=== PATIENT | female | born 1980 | race Caucasian/White ===

== ENCOUNTER 2025-04-02 11:36 | Emergency (ER) | payer BC, SELFPAY ==
[2025-04-02 11:50] VITALS: BP 155/92; PULSE 70; RESP 19; TEMP 36.4; O2SAT 99; BMI 34.4
--- NOTE | 2025-04-02 12:05 | XR_ITS ---
EXAMINATION: Ankle, left 3 views. Technique: Ankle AP, oblique, lateral 3 views Date and time of exam: April 02, 2025, 12:50 p.m. INDICATIONS: Injury to the ankle today, ankle pain. FINDINGS: No ankle fracture or dislocation Prominent plantar and posterior bony calcaneal spurs IMPRESSION: No fracture or dislocation
[2025-04-02] MEDS: ACETAMINOPHEN 325 MG TABLET 1000 MG PO (12:28)
--- NOTE | 2025-04-02 12:32 | PD.EDANKLE ---
Lower Extremity Injury RME/HPI General Chief Complaint: Ankle/Foot Injury Stated Complaint: L ANKLE INJURY TODAY Time Seen by Provider: 04/02/25 12:05 Arrival date/time: 04/02/25 11:36 Limitations: no limitations RME / HPI RME / HPI Narrative: 44 year old female with history of IgA nephropathy, hypertension presents to the ED for evaluation of left ankle pain following injury today. Patient states she had walked outside barefoot and stepped on a sticker . States she had walked over to a cement ledge to place her foot on to remove the sticker . In process of doing so, she misstepped and heard a loud crack immediately followed by pain to the left ankle. States the pain the aggravated with movements and very minimally improved with immobilization. No other injuries or complaints reported. 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) REPRODUCTIVE: Positive Endometriosis (FOR THIS PROC) OTHER HISTORY: Positive Chicken Pox Family History FAMILY HISTORY: Positive Family Surgery (MOTHER,FATHER,BROTHER,SISTER) Surgical History SURGICAL: Negative Pacemaker Social History SMOKING STATUS: Never smoker ED Exam General Limitations: Present no limitations General appearance: Present alert and in no apparent distress Head Head exam: Present atraumatic, normocephalic and normal inspection Eye Eye exam: Present normal appearance and EOMI ENT ENT exam: Present normal exam, normal oropharynx and mucous membranes moist Neck Neck exam: Present normal inspection, full ROM and trachea midline Chest Chest inspection: Present normal inspection and symmetric chest wall rise Respiratory Respiratory exam: Present normal lung sounds bilaterally Cardiovascular Cardiovascular exam: Present regular rate, normal rhythm and normal heart sounds Extremities Exam Extremities exam: Present full ROM and other (The left ankle appeared normal, no edema, ROM not tested due to complaint of pain, no deformity, no ecchymosis. ) Neurological Exam Neurological exam: Present alert and oriented X3 Skin Skin exam: Present warm, dry, intact and normal color Course Quality Measures none Orders Category Date Time Status XR ankle comp LT min 3V Stat Exams 04/02/25 12:05 Completed Acetaminophen Tab [Tylenol Tab] Med 04/02/25 12:05 Discontinued 1,000 mg PO X1 ONE Vital Signs Vital signs: Vital Signs Temperature 97.5 F 04/02/25 11:50 Pulse Rate 70 04/02/25 11:50 Respiratory Rate 19 04/02/25 11:50 Blood Pressure 155/92 H 04/02/25 11:50 Pulse Oximetry (%) 99 04/02/25 11:50 Oxygen Delivery Method Room Air 04/02/25 11:50 Pulse ox is 99% on room air which is adequate. Extremity Injury, Lower MDM Narrative MDM Narrative:: Oly Olivas am scribing for and in the presence of Dr. Simpson. Left ankle XR is negative for any fracture or dislocation. In the ED, patient was given Tylenol for pain. Patient will be discharged home with GERMAN wrap and crutches. Patient data External records reviewed:: [facility] previous records Clinical information provided by:: patient Social determinants that could affect healthcare access:: none Patient has the following chronic illnesses:: IgA nephropathy, hypertension How is presenting disease/condition affected by chronic disease/condition?: uneffected by Evaluation data The following diagnostics were reviewed and interpreted by me:: lab results and radiology exam(s) Lab and/or radiology exams considered but not ordered:: None Interpretation Summary: Ordering Physician: Roni Simpson MD Date of Service: 04/02/25 Procedure(s): XR ankle comp LT min 3V Accession Number(s): [id number] cc: Roni Simpson MD; Prudencio Bermudez MD~ EXAMINATION: Ankle, left 3 views. Technique: Ankle AP, oblique, lateral 3 views Date and time of exam: April 02, 2025, 12:50 p.m. INDICATIONS: Injury to the ankle today, ankle pain. FINDINGS: No ankle fracture or dislocation Prominent plantar and posterior bony calcaneal spurs IMPRESSION: No fracture or dislocation Dictated By: Prudencio Bermudez MD Signed By: <Electronically signed by Prudencio Bermudez MD in [place]> 04/02/25 1324 Medications / Prescriptions Medications or Prescriptions considered but not ordered:: None Medication administrations:: Medication Administration History Discontinued Medications Acetaminophen (Acetaminophen 325 Mg Tablet) 1,000 mg PO X1 ONE Stop: 04/02/25 12:06 Last Admin: 04/02/25 12:28 Dose: 1,000 mg Documented By: PRASHANT See above Consultations Consultation(s) initiated? (list below): No Diagnosis Most likely diagnosis given after review of the tests above:: Left ankle pain Admission Indicated Admission indicated?: not indicated Admission Request Was there a request for admission?: No Disposition Plan Disposition Plan: Discharge Discharge Attestation Discharge Attestation: The patient and all family members were given an opportunity to ask questions and understood the discharge instructions. Discharge instructions specifically effects, indications for sooner follow up or return to the emergency department, and the expected course of current diagnosis. Patient condition: Stable Discharge Plan Plan Patient Disposition: HOME (Self Care) Prescriptions/Referrals Prescriptions/Med Rec: No Action lisinopril 10 MG tablet 10 mg PO QDAY Qty: 0 Referrals: Viraj Gusman MD [Primary Care Provider, Family Practice] - In 1 week Problem List Clinical Impression: Left ankle pain Patient/Caregiver Discharge Instructions Education Materials: ED GERMAN Wrap, ED Foot Contusion Additional Instructions: For pain, take both 1-2 Tylenol 500mg tablets every 6 hours AND 2 Advil Gel 200mg capsules every 6 hours. Follow-up with your primary care doctor in 3 to 5 days for recheck. You can return to the emergency department sooner if symptoms worsen or if you notice any new, concerning issues. Print Language: Croatian Stand Alone Forms: [employer] Info., Patient Portal Info Letter
== END 2025-04-02 18:27 | disposition home or self-care (01) ==
PROVIDERS: Emergency Provider Family Medicine; PCP Family Medicine
DX: S90.30XA Contusion of unspecified foot, initial encounter (principal); I10 Essential (primary) hypertension; S99.912A Unspecified injury of left ankle, initial encounter; Z95.0 Presence of cardiac pacemaker; X58.XXXA Exposure to other specified factors, initial encounter
CPT/HCPCS: 73610; 99283; A9270

== ENCOUNTER → 2025-04-30 | Outpatient (CLI) | payer BC, SELFPAY ==
--- NOTE | 2025-04-30 16:30 | XR_ITS ---
Examination: MRI left ankle without contrast Date and time of exam: May 17, 2025, 1710 hours INDICATIONS: Injury 1 month ago with sharp pain in the ankle and the calf and heel region Technique: Multiple MRI axial and sagittal sections left ankle. Sagittal T2-weighted images, TR 3500, TE 118 T1 weighted transverse sections, TR 688 T8.5, T2-weighted sagittal sections T1 weighted sagittal sections TR 621, TE 30 T2 axial sections, TR 4, 190, TE 84. Findings: Complete tear Achilles tendon, retracted 3 cm from its normal calcaneal insertion Mild plantar fasciitis No occult fracture or bone contusion Edema in the subcutaneous fatty tissue Anterior posterior inferior tibiofibular and talofibular ligaments intact Flexor and extensor tendons intact Negative for sinus Tarsi syndrome Dome of the talus intact IMPRESSION: Complete tear of the Achilles tendon
== END | disposition home or self-care (01) ==
PROVIDERS: PCP Family Medicine; Referring Provider Nurse Practitioner Family; Visit Provider Nurse Practitioner Family
DX: S86.012A Strain of left Achilles tendon, initial encounter (principal); X58.XXXA Exposure to other specified factors, initial encounter
CPT/HCPCS: 73721